=== PATIENT | female | born 1955 | race Caucasian/White ===

== ENCOUNTER → 2021-07-26 | Day surgery (SDC) | payer OTHER ==
[~2021-07-26] VITALS: Ht 157.5 cm; Wt 87.5 kg
[~2021-07-26] MED LIST: ALENDRONATE SOD70 MG PO; ASPIRIN EC81 MG PO; LIPITOR 10MG TA10 MG PO; MULTIVITAMIN; SINGULAIR10 MG PO; SPIRIVA 18MCG18 MCG INH; VENTOLIN HFA IN18 GM INH; VITAMIN E45 MG PO; [UNRECOGNIZED DRUG - OTHER] PO
== END | disposition home or self-care (01) ==
LOC: FAS 08:04
DX: Z12.11 Encounter for screening for malignant neoplasm of colon (principal); K62.1 Rectal polyp; I10 Essential (primary) hypertension; J44.9 Chronic obstructive pulmonary disease, unspecified; E78.5 Hyperlipidemia, unspecified; Z98.51 Tubal ligation status; Z80.0 Family history of malignant neoplasm of digestive organs; Z79.82 Long term (current) use of aspirin; Z87.891 Personal history of nicotine dependence
CPT/HCPCS: J2250; J2704; J7120